=== PATIENT | female | born 1945 | race Caucasian/White ===

== ENCOUNTER → 2017-03-20 | Outpatient (CLI) | payer MEDICARE, BC ==
--- NOTE | 2017-03-20 14:17 | WOMENS IMAGING REPORT ---
EXAM DESCRIPTION: BONE DENSITY HIP/SPINE COMPLETED DATE/TIME: 03/20/2017 1:57 pm REASON FOR STUDY: OSTEOPENIA; M85.80 Z12.31 ENCNTR SCREEN MAMMOGRAM FOR MALIGNANT NEOPLASM OF DIO Z 13.820 ENCOUNTER FOR SCREENING FOR OSTEOPOROSIS M85.80 OTH DISRD OF BONE DENSITY AND STRUCTURE, UNS PECIFIED COMPARISON: None. TECHNIQUE: Dual-Energy X-ray Absorptiometry (DEXA) of the AP Spine and Hip. LIMITATIONS: None. FINDINGS: LUMBAR SPINE: The bone mineral density (BMD) measured from L1-L4 in the AP projection correlates with a T-score of -0.1, which is normal as defined by the World Health Organization. HIP: The bone mineral density (BMD) measured in the left hip correlates with a T-score of -1.2, which is o steopenia as defined by the World Health Organization. IMPRESSION: 1. LUMBAR SPINE: Normal 2. HIP: Osteopenia COMMENT: The World Health Organization defines low BMD as follows: T-score: Normal: Greater than -1.0 Osteopenia: Between -1.0 and -2.5 Osteoporosis: Less than -2.5 without fractures Established osteoporosis: Less than -2.5 with fractures In general, you may wish to consider: Diagnosis Treatment Follow-up DEXA Normal BMD Prevention 2-3 years Osteopenia Prevention/Therapy 1-2 years Osteoporosis Therapy Yearly TECHNICAL DOCUMENTATION: JOB ID: [id number] [employer]- All Rights Reserved
--- NOTE | 2017-03-21 15:57 | WOMENS IMAGING REPORT ---
EXAM DESCRIPTION: BILAT SCREENING MAMMO W/CAD COMPLETED DATE/TIME: 03/20/2017 1:56 pm REASON FOR STUDY: SCREENING MAMMO,OSTEOPOROSIS Z12.31 ENCNTR SCREEN MAMMOGRAM FOR MALIGNANT NEOPLAS M OF DIO Z13.820 ENCOUNTER FOR SCREENING FOR OSTEOPOROSIS M85.80 OTH DISRD OF BONE DENSITY AND STRU CTURE, UNSPECIFIED COMPARISON: [id number] TECHNIQUE: Standard craniocaudal and mediolateral oblique views of each breast recorded using digita l acquisition. LIMITATIONS: None. FINDINGS: No masses, calcifications or architectural distortion. No areas of suspicion. Read with the assistance of CAD. .[facility] - R2 Cenova Version 1.3 .[facility] - R2 Cenova Version 1.3 .[facility] - R2 Cenova Version 2.[address] - R2 Cenova Version 2.4 .[facility] - R2 Sand Filler Version 9.2 IMPRESSION: NORMAL MAMMOGRAM. BIRADS 1. BREAST DENSITY: b. There are scattered areas of fibroglandular density. BIRAD: 1 NEGATIVE RECOMMENDATION: ROUTINE SCREENING COMMENT: The patient has been notified of the results by letter per SA requirements. Additional no tification policies are in place for contacting patient with suspicious or incomplete findings. Quality ID #225: The [employer] [place] [employer] recommends an annual screening mammogram for women aged 40 years or over. This facility utilizes a reminder system to ensure that all patients receive reminder letters, and/or direct phone calls for appointments. This includes reminders for routine scr eening mammograms, diagnostic mammograms, or other Breast Imaging Interventions when appropriate. Th is patient will be placed in the appropriate reminder system. The [employer] [place] [employer] (ACR) has developed recommendations for screening MRI of the breast s in certain patient populations, to be used in conjunction with mammography. Breast MRI surveillanc e may be appropriate for women with more than 20% lifetime risk of developing breast cancer as deter mined by genetic testing, significant family history of the disease, or history of mantle radiation f or Hodgkins Disease. ACR Practice Guidelines 2008. TECHNICAL DOCUMENTATION: FINDING NUMBER: (1) ASSESSMENT: (1) JOB ID: [id number] [employer]- All Rights Reserved
== END ==
LOC: WI 10:01
PROVIDERS: ATTEND Internal Medicine
DX: Z12.31 Encounter for screening mammogram for malignant neoplasm of breast (principal); M85.88 Other specified disorders of bone density and structure, other site
CPT/HCPCS: 77067; 77080

== ENCOUNTER 2018-03-02 19:33 | Emergency (ER) | payer MEDICARE, BC ==
--- NOTE | 2018-03-02 20:02 | ER Document Report ---
ED General - General Chief Complaint: Ankle Injury Stated Complaint: FALL, LEFT ANKLE INJURY Time Seen by Provider: 03/02/18 19:39 Notes: Patient is a 72-year-old female who presents with left ankle and foot pain. Patient states that this occurred as she was walking out to her backyard, her foot got stuck on the door prompting her to fall forward and twisted her left ankle. She states that she heard a crack and developed an immediate, severe, throbbing pain to her left ankle that has been ongoing since that time. She states any attempt at bearing weight worsens the pain. She has declined anything to improve the pain. She does however note that she has minimal pain so long as she does not move the ankle. She denies any additional injuries today stating that she caught the rest of her body on a table with her hands and thankfully did not hurt any other area of her body. She denies any history of similar injury in the past. She has not seen her primary care doctor regarding today's concerns. TRAVEL OUTSIDE OF THE [place] IN LAST 30 DAYS: No Past Medical History - General Information source: Patient - Social History Smoking Status: Never Smoker Frequency of alcohol use: None Drug Abuse: None Lives with: Spouse/Significant other Family History: Reviewed & Not Pertinent Patient has suicidal ideation: No Patient has homicidal ideation: No - Past Medical History Cardiac Medical History: Reports: Hx Hypertension Endocrine Medical History: Reports: Hx Diabetes Mellitus Type 2 Renal/ Medical History: Denies: Hx Peritoneal Dialysis Review of Systems - Review of Systems Notes: Constitutional: Negative for fever. Eyes: Negative for visual changes. ENT: Negative for facial injury Cardiovascular: Negative for chest injury. Respiratory: Negative for shortness of breath. Gastrointestinal: Negative for abdominal injury. Genitourinary: Negative for genital injury Musculoskeletal: Positive for left ankle and left foot injury Skin: Negative for laceration/abrasions. Neurological: Negative for head injury. Physical Exam - Vital signs Vitals: Temp Pulse Resp BP Pulse Ox 98.5 F 71 19 142/46 H 99 03/02/18 19:36 03/02/18 19:36 03/02/18 19:36 03/02/18 19:36 03/02/18 19:36 Interpretation: Normal Notes: PHYSICAL EXAMINATION: GENERAL: Well-appearing, well-nourished and in no acute distress. HEAD: Atraumatic, normocephalic. EYES: sclera anicteric, conjunctiva are normal. ENT: Moist mucous membranes. NECK: Normal range of motion LUNGS: Normal work of breathing HEART: 2+ DP pulses bilaterally EXTREMITIES: Swelling of the lateral malleolus of the left ankle. Significant pain on palpation of the base of the fifth left toe. NEUROLOGICAL: No focal neurological deficits. Moves all extremities spontaneously and on command. PSYCH: Normal mood, normal affect. SKIN: Warm, Dry, normal turgor, ecchymosis noted over the lateral malleolus of the left lower extremity as well as over the lateral aspect of the mid dorsal left foot Course - Re-evaluation Re-evalutation: 03/02/18 20:01 Patient presents with left lateral malleolus bruising pain to palpation after mechanical trip and fall in which she rolled her ankle. She did not sustain any additional injuries. The patient does have some pain at the base of the fifth toe and a foot x-ray will also be obtained. Will also obtain ankle/tib-fib x- ray. Patient has declined pain medication. She denies any additional injury or concerns. 03/02/18 21:24 X-rays do show a fracture of the left distal fibula as well as a fracture of the base of the fifth metatarsal. The patient has been made nonweightbearing, placed in a short leg posterior splint, and provided crutches. She has been instructed to follow-up with orthopedic surgery within the next 1 week. At this time will discharge with return precautions and follow-up recommendations. Verbal discharge instructions given a the bedside and opportunity for questions given. Medication warnings reviewed. Patient is in agreement with this plan and has verbalized understanding of return precautions and the need for orthopedic follow-up in the next 3-7 days - Vital Signs Vital signs: Temp Pulse Resp BP Pulse Ox 98.0 F 75 15 122/71 98 03/02/18 23:20 03/02/18 23:20 03/02/18 23:20 03/02/18 23:20 03/02/18 23:20 - Diagnostic Test Radiology reviewed: Image reviewed, Reports reviewed Radiology results interpreted by me: 03/02/18 21:25 Left tib-fib: Distal fibular fracture Left foot x-ray: Fracture of the base of the fifth metatarsal Procedures - Immobilization Left Ankle Pre-Proc Neuro Vasc Exam: Normal Immobilizer type: Short Leg Posterior Performed by: Provider assisted Post-Proc Neuro Vasc Exam: Normal Alignment checked and good: Yes Discharge - Discharge Clinical Impression: Fracture of fifth metatarsal bone Qualifiers: Encounter type: initial encounter Fracture type: closed Fracture alignment: displaced Laterality: left Qualified Code(s): S92.352A - Displaced fracture of fifth metatarsal bone, left foot, initial encounter for closed fracture Fracture of distal fibula Qualifiers: Encounter type: initial encounter Fracture type: closed Fracture morphology: unspecified fracture morphology Laterality: left Qualified Code(s): S82.832A - Other fracture of upper and lower end of left fibula, initial encounter for closed fracture Fall Qualifiers: Encounter type: initial encounter Qualified Code(s): W19.XXXA - Unspecified fall, initial encounter Condition: Good Disposition: HOME, SELF-CARE Additional Instructions: Your x-ray does show a fracture of your distal fibula as well as the base of the fifth toe. You have been placed in a splint and need to keep this on until you are seen by orthopedic surgery. Please do not bear weight on this foot and use the crutches provided. For your pain: Take ibuprofen 600 mg and acetaminophen 1000 mg every 6 hours together as needed for pain. Please follow-up with orthopedic surgery within the next 1 week. Return to the emergency department immediately if you have worsening of your pain, spreading redness from your foot, pass out, noticed discoloration of your foot, have weakness or numbness of the foot, or have any other symptoms that are worrisome to you. Referrals: DUSTY HASKINS MD [Primary Care Provider] - Follow up as needed BIA GALVAN MD [ACTIVE STAFF] - Follow up in 1 week
--- NOTE | 2018-03-02 20:59 | RADIOLOGY REPORT (SQ) ---
EXAM DESCRIPTION: TIBIA FIBULA LEFT COMPLETED DATE/TIME: 03/02/2018 8:30 pm REASON FOR STUDY: fall, ankle pain COMPARISON: None. NUMBER OF VIEWS: Two views. TECHNIQUE: Two radiographic images acquired of the left tibia and fibula to include the knee and ank le in at least one projection. LIMITATIONS: None. FINDINGS: MINERALIZATION: Normal. BONES: No fracture or dislocation of the proximal tibia or fibula. There is a minimally displaced fr acture of the distal left fibular tip and a probable Oliver type fracture of the base of the left 5th metatarsal. SOFT TISSUES: No obvious swelling or foreign body. OTHER: No other significant finding. IMPRESSION: 1. No fracture or dislocation of the proximal tibia or fibula. 2. There is a minimally displaced fracture of the distal left fibular tip and a probable Oliver type f racture of the base of the left 5th metatarsal. Recommend dedicated radiographs of the foot and ankl e to further evaluate. TECHNICAL DOCUMENTATION: JOB ID: [id number] [employer]- All Rights Reserved Reading location - IP/workstation name: [email or web address]
--- NOTE | 2018-03-02 21:13 | RADIOLOGY REPORT (SQ) ---
3 VIEWS OF THE LEFT FOOT HISTORY: 5th toe base pain. COMPARISON: None. FINDINGS: Generalized osteopenia is present. There is an acute mildly displaced fracture of the fifth metatarsal base. No evidence of dislocation. There is mild overlying soft tissue swelling. IMPRESSION: Acute mildly displaced fracture of the fifth metatarsal base.
[2018-03-02 23:20] VITALS: BP 122/71
== END 2018-03-02 23:20 | disposition home or self-care (01) ==
LOC: ER 19:33
DX: S92.352A Displaced fracture of fifth metatarsal bone, left foot, initial encounter for closed fracture (principal); S82.832A Other fracture of upper and lower end of left fibula, initial encounter for closed fracture; W18.30XA Fall on same level, unspecified, initial encounter; Y92.008 Other place in unspecified non-institutional (private) residence as the place of occurrence of the external cause; E11.9 Type 2 diabetes mellitus without complications; I10 Essential (primary) hypertension
CPT/HCPCS: 99284

== ENCOUNTER 2018-09-22 13:04 | Emergency (ER) | payer MEDICARE, BC ==
--- NOTE | 2018-09-22 13:58 | ER Document Report ---
ED Medical Screen (RME) - General Chief Complaint: Vomiting Stated Complaint: VOMITING BLOOD Time Seen by Provider: 09/22/18 13:54 Primary Care Provider: DUSTY HASKINS MD [Primary Care Provider] - Follow up as needed Mode of Arrival: Wheelchair Information source: Patient Notes: Patient presents emergency department with reports that she vomited 3 times this morning bright red blood a lot. Patient reports she had a bowel movement but denies that having any blood in it. Patient has a history of cirrhosis and has just been diagnosed with liver cancer. She reports she is not on any chemo or radiation yet. Patient feels dizzy. Denies chest pain shortness of breath. Denies abdominal pain. I have greeted and performed a rapid initial assessment of this patient. A comprehensive ED assessment and evaluation of the patient, analysis of test results and completion of the medical decision making process will be conducted by additional ED providers. Dictation of this chart was performed using voice recognition software; therefore, there may be some unintended grammatical errors. TRAVEL OUTSIDE OF THE [place] IN LAST 30 DAYS: No - Related Data Allergies/Adverse Reactions: No Known Allergies Allergy (Verified 09/22/18 13:22) Past Medical History - Past Medical History Cardiac Medical History: Reports: Hx Hypertension Endocrine Medical History: Reports: Hx Diabetes Mellitus Type 2 Renal/ Medical History: Denies: Hx Peritoneal Dialysis Physical Exam - Vital signs Vitals: Temp Pulse Resp BP Pulse Ox 97.9 F 68 20 152/65 H 96 09/22/18 13:32 09/22/18 13:32 09/22/18 13:32 09/22/18 13:32 09/22/18 13:32 Course - Vital Signs Vital signs: Temp Pulse Resp BP Pulse Ox 97.9 F 68 20 152/65 H 96 09/22/18 13:32 09/22/18 13:32 09/22/18 13:32 09/22/18 13:32 09/22/18 13:32 Doctor's Discharge - Discharge Referrals: DUSTY HASKINS MD [Primary Care Provider] - Follow up as needed
[2018-09-22 14:44] LABS: ABSOLUTE LYMPHOCYTES (AUTO) 0.8 10^3/uL (0.5-4.7); ABSOLUTE MONOCYTES (AUTO) 0.4 10^3/uL (0.1-1.4); ABSOLUTE NEUT (AUTO) 3.6 10^3/uL (1.7-8.2); BASOPHILS % (AUTO) 0.5 % (0-2); EOSINOPHILS % (AUTO) 0.3 % (0-6); HEMATOCRIT 38.7 % (36.0-47.0); HEMOGLOBIN 12.7 g/dL (12.0-15.5); LYMPHOCYTES % (AUTO) 17.4 % (13-45); MEAN CORPUSCULAR HEMOGLOBIN 27.6 pg (27.0-33.4); MEAN CORPUSCULAR HGB CONC 32.7 g/dL (32.0-36.0); MEAN CORPUSCULAR VOLUME 84 fl (80-97); MONOCYTES % (AUTO) 7.9 % (3-13); RED BLOOD COUNT 4.59 10^6/uL (3.72-5.28); SEGMENTED NEUTROPHILS % (AUTO) 73.9 % (42-78); TOTAL CELLS COUNTED % (AUTO) 100 %; WHITE BLOOD COUNT 4.9 10^3/uL (4.0-10.5)
[2018-09-22 15:09] LABS: ALANINE AMINOTRANSFERASE 58 U/L (9-52); ALKALINE PHOSPHATASE 62 U/L (38-126); ANION GAP 7 (5-19); ASPARTATE AMINO TRANSFERASE 68 U/L (14-36); BILIRUBIN,DIRECT 0.2 mg/dL (0.0-0.4); BILIRUBIN,TOTAL 1.4 mg/dL (0.2-1.3); BLOOD UREA NITROGEN 15 mg/dL (7-20); CALCIUM 9.9 mg/dL (8.4-10.2); CARBON DIOXIDE 27 mmol/L (22-30); CHLORIDE 106 mmol/L (98-107); GLUCOSE 146 mg/dL (75-110); POTASSIUM 4.4 mmol/L (3.6-5.0); TOTAL PROTEIN 6.9 g/dL (6.3-8.2)
[2018-09-22 15:14] LABS: PLATELET COUNT 72 10^3/uL (150-450)
[2018-09-22] MEDS ORDERED: PANTOPRAZOLE SODIUM 40 MG VIAL IV ONE (15:26)
[2018-09-22] MEDS ORDERED: OCTREOTIDE ACETATE INJ/PF 100 MCG/1 ML SDV IV ONE (15:26)
[2018-09-22] MEDS ORDERED: CEFTRIAXONE INJ 1000 MG VIAL IV ONE (15:26)
[2018-09-22] MEDS ORDERED: NORMAL SALINE 1000 ML 1,000 ML IV ONE (15:35)
--- NOTE | 2018-09-22 15:35 | ER Document Report ---
ED General - General Chief Complaint: Vomiting Stated Complaint: VOMITING BLOOD Time Seen by Provider: 09/22/18 13:54 Primary Care Provider: DUSTY HASKINS MD [ACTIVE STAFF] - Follow up as needed Mode of Arrival: Wheelchair TRAVEL OUTSIDE OF THE [place] IN LAST 30 DAYS: No - HPI Notes: Patient is a 83-year-old female that presents to the emergency department for chief complaint of hematemesis. Patient presents the emergency room with chief complaint of vomiting bright red blood. She states she had 3 episodes this morning where she felt like she had to burp but then a large amount of blood came up. She states she could not quantify it but it was aye bleeding. She currently denies any abdominal pain. She denies known history of esophageal varices but states she has not had an EGD in many years. Patient was diagnosed with liver cancer about a year ago and has not undergone any treatments as of yet. She has been evaluated at [facility] and told she is not a candidate for liver transplant. Patient denies having any black or bloody stools but has not had a bowel movement since the onset of her hematemesis. Currently she states she is feeling well. She denies history of requiring blood transfusion. She is seeing a Dr. Hicks associated with [facility] for GI. She denies being on any blood thinning medications. Past Medical History: Liver cancer, cirrhosis Past Surgical History: Reviewed in chart Social History: Denies tobacco alcohol use, lives independently Family History: Reviewed and noncontributory for presenting illness Allergies: Reviewed, see documented allergy list. REVIEW OF SYSTEMS: CONSTITUTIONAL : No fever No chills No diaphoresis No recent illness EENT: No vision changes No congestion No sore throat CARDIOVASCULAR: No chest pain No palpitations RESPIRATORY: No shortness of breath No cough No difficulty breathing GASTROINTESTINAL: No abdominal pain nausea vomiting No diarrhea Hematemesis GENITOURINARY: No dysuria No hematuria No difficulty urinating MUSCULOSKELETAL: No back pain No leg pain No arm pain SKIN: No rashes No lesions LYMPHATIC: No swollen, enlarged glands. NEUROLOGICAL: No lightheadedness No headache No weakness No paresthesias PSYCHIATRIC: No anxiety No depression PHYSICAL EXAMINATION: Vital signs reviewed, nursing noted reviewed. GENERAL: Well-appearing, well-nourished and in no acute distress. HEAD: Atraumatic, normocephalic. EYES: Eyes appear normal, extraocular movements intact, sclera anicteric, conjunctiva are normal without palor. ENT: nares patent, oropharynx clear without exudates. Dry mucous membranes. NECK: Normal range of motion, supple without lymphadenopathy LUNGS: Breath sounds clear to auscultation bilaterally and equal. No wheezes rales or rhonchi. HEART: Regular rate and rhythm without murmurs ABDOMEN: Soft, nontender. No rebound, guarding, or rigidity. No masses appreciated. EXTREMITIES: Nontender, good range of motion, no pitting or edema. NEUROLOGICAL: No focal neurological deficits. Moves all extremities spontaneously Motor and sensory grossly intact on exam. PSYCH: Normal mood, normal affect. SKIN: Warm, Dry, normal turgor, no rashes or lesions noted on exposed skin - Related Data Allergies/Adverse Reactions: No Known Allergies Allergy (Verified 09/22/18 13:22) Past Medical History - General Information source: Patient - Social History Smoking Status: Never Smoker Frequency of alcohol use: None Drug Abuse: None Family History: Reviewed & Not Pertinent Patient has suicidal ideation: No Patient has homicidal ideation: No - Past Medical History Cardiac Medical History: Reports: Hx Hypertension Endocrine Medical History: Reports: Hx Diabetes Mellitus Type 2 Renal/ Medical History: Denies: Hx Peritoneal Dialysis Past Surgical History: Reports: Hx Hysterectomy, Hx Orthopedic Surgery - carpel tunnel Physical Exam - Vital signs Vitals: Temp Pulse Resp BP Pulse Ox 97.9 F 68 20 152/65 H 96 09/22/18 13:32 09/22/18 13:32 09/22/18 13:32 09/22/18 13:32 09/22/18 13:32 Course - Re-evaluation Re-evalutation: 09/22/18 15:35 Vitals reviewed. Nursing notes reviewed. Patient is well-appearing and in no acute distress. Currently she denies any abdominal pain or nausea. The amount of hematemesis she is describing seems moderate to severe. She has a normal hemoglobin on initial blood draw. She is not currently tachycardic or hypotensive. She does have dry mucous membranes and was given IV hydration. Patient's EKG shows QT prolongation. She has no severe electrolyte derangements. We currently do not have GI manager web application. With patient's history of liver cancer and cirrhosis there is a high probability that she has esophageal varices that are causing the bleeding. Patient is requiring GI evaluation and inpatient monitoring. Her GI physician is associated with [facility] and she will be transferred there for further care. She was given IV fluids, Rocephin, octreotide, and Protonix in the emergency room. Laboratory 09/22/18 09/22/18 14:22 14:22 WBC 4.9 RBC 4.59 Hgb 12.7 Hct 38.7 MCV 84 MCH 27.6 MCHC 32.7 RDW 15.0 H Plt Count 72 L Seg Neutrophils % 73.9 Lymphocytes % 17.4 Monocytes % 7.9 Eosinophils % 0.3 Basophils % 0.5 Absolute Neutrophils 3.6 Absolute Lymphocytes 0.8 Absolute Monocytes 0.4 Absolute Eosinophils 0.0 Absolute Basophils 0.0 Sodium 140.0 Potassium 4.4 Chloride 106 Carbon Dioxide 27 Anion Gap 7 BUN 15 Creatinine 0.59 Est GFR ( Amer) > 60 Est GFR (Non-Af Amer) > 60 Glucose 146 H Calcium 9.9 Total Bilirubin 1.4 H Direct Bilirubin 0.2 Neonat Total Bilirubin Not Reportable Neonat Direct Bilirubin Not Reportable Neonat Indirect Bili Not Reportable AST 68 H ALT 58 H Alkaline Phosphatase 62 Total Protein 6.9 Albumin 4.0 Patient's care was discussed with Dr. Monroe who has accepted patient for transfer. - Vital Signs Vital signs: Temp Pulse Resp BP Pulse Ox 97.9 F 68 20 152/65 H 96 09/22/18 13:32 09/22/18 13:32 09/22/18 13:32 09/22/18 13:32 09/22/18 13:32 - Laboratory Result Diagrams: 09/22/18 14:22 09/22/18 14:22 Laboratory results interpreted by me: 09/22/18 09/22/18 14:22 14:22 RDW 15.0 H Plt Count 72 L Glucose 146 H Total Bilirubin 1.4 H AST 68 H ALT 58 H - EKG Interpretation by Me Additional EKG results interpreted by me: 09/22/18 15:40 Interpreted by myself 1433: Normal sinus rhythm, rate 75, right bundle branch block, prolonged QT, QTC 637, no STEMI Discharge - Discharge Clinical Impression: Hematemesis of unknown cause, QT prolongation Condition: Stable Disposition: [facility] Referrals: DUSTY HASKINS MD [ACTIVE STAFF] - Follow up as needed
[2018-09-22] MEDS ORDERED: PANTOPRAZOLE SODIUM 40 MG VIAL IV PRN (16:38)
[2018-09-22 17:12] LABS: ABSOLUTE LYMPHOCYTES (AUTO) 1.1 10^3/uL (0.5-4.7); ABSOLUTE MONOCYTES (AUTO) 0.4 10^3/uL (0.1-1.4); ABSOLUTE NEUT (AUTO) 2.8 10^3/uL (1.7-8.2); BASOPHILS % (AUTO) 0.8 % (0-2); EOSINOPHILS % (AUTO) 0.4 % (0-6); HEMATOCRIT 37.2 % (36.0-47.0); LYMPHOCYTES % (AUTO) 24.9 % (13-45); MEAN CORPUSCULAR HEMOGLOBIN 27.4 pg (27.0-33.4); MEAN CORPUSCULAR HGB CONC 32.2 g/dL (32.0-36.0); MEAN CORPUSCULAR VOLUME 85 fl (80-97); MONOCYTES % (AUTO) 8.9 % (3-13); RED BLOOD COUNT 4.36 10^6/uL (3.72-5.28); TOTAL CELLS COUNTED % (AUTO) 100 %; WHITE BLOOD COUNT 4.3 10^3/uL (4.0-10.5)
[2018-09-22 17:18] LABS: INTERNATIONAL RATION (INR) 1.19; PROTHROMBIN TIME 15.1 SEC (11.4-15.4)
[2018-09-22 17:19] LABS: PARTIAL THROMBOPLASTIN TIME 27.8 SEC (23.5-35.8)
[2018-09-22 17:36] LABS: PLATELET COUNT 60 10^3/uL (150-450)
[2018-09-22 18:18] VITALS: BP 180/54
--- NOTE | 2018-09-24 08:12 | EKG REPORT ---
SEVERITY:- ABNORMAL ECG - SINUS TACHYCARDIA RIGHT BUNDLE BRANCH BLOCK BORDERLINE INFERIOR Q WAVES : Confirmed by: Francisco Guerrero MD 24-Sep-2018 08:11:25
== END 2018-09-22 18:28 | disposition short-term general hospital (02) ==
LOC: ER 13:04
DX: K92.0 Hematemesis (principal); I45.81 Long QT syndrome; C22.8 Malignant neoplasm of liver, primary, unspecified as to type; I10 Essential (primary) hypertension; E11.9 Type 2 diabetes mellitus without complications; Z90.710 Acquired absence of both cervix and uterus
CPT/HCPCS: 93005; 99285; 96361; 96375; 96365; 86900; 86901; 36415; 86850; 85025; 85610; 85730; 80053; 93010; J2354; C9113; J0696; J7030; S0164

== ENCOUNTER → 2018-10-02 | Outpatient (CLI) | payer MEDICARE, BC ==
--- NOTE | 2018-10-02 12:02 | WOMENS IMAGING REPORT ---
EXAM DESCRIPTION: BILAT SCREENING MAMMO W/CAD COMPLETED DATE/TIME: 10/02/2018 11:43 am REASON FOR STUDY: Z12.31 Z12.31 ENCOUNTER FOR SCREENING MAMMOGRAM FOR MALIGNANT NEOPLASM OF B Z12.31 ENCNTR SCREEN MAMMOGRAM FOR MALIGNANT NEOPLASM OF DIO COMPARISON: 03/20/2017 and 03/08/2016. EXAM PARAMETERS: Standard craniocaudal and mediolateral oblique views of each breast recorded using digital acquisition. Read with the assistance of CAD. .[facility] - R2 Program Medical Director Version 9.2 LIMITATIONS: None. FINDINGS: Findings present which are benign by mammographic criteria. No suspicious masses, calcifi cations or architectural distortion. Pertinent benign findings: Stable benign calcifications and asymmetry in the left breast. Benign mammographic findings may include one or more of the following: Smooth masses, popcorn/rim/co arse calcifications, asymmetries, post-procedure changes, and lesions with long-standing stability. IMPRESSION: BENIGN MAMMOGRAPHIC FINDINGS. BIRADS 2 BREAST DENSITY: b. There are scattered areas of fibroglandular density. BIRAD: ASSESSMENT: 2 BENIGN FINDING(S) RECOMMENDATION: ROUTINE SCREENING COMMENT: The patient has been notified of the results by letter per MQSA requirements. Additional no tification policies are in place for contacting patient with suspicious or incomplete findings. Quality ID #[id number]: The [place] [employer] recommends an annual screening mammogram for women aged 40 years or over. This facility utilizes a reminder system to ensure that all patients receive reminder letters, and/or direct phone calls for appointments. This includes reminders for routine scr eening mammograms, diagnostic mammograms, or other Breast Imaging Interventions when appropriate. Th is patient will be placed in the appropriate reminder system. TECHNICAL DOCUMENTATION: FINDING NUMBER: (1) ASSESSMENT: (1) JOB ID: [id number] [employer]- All Rights Reserved Reading location - IP/workstation name: [email or web address]
== END ==
LOC: RAD 10:13
PROVIDERS: ATTEND Family Medicine
DX: Z12.31 Encounter for screening mammogram for malignant neoplasm of breast (principal)
CPT/HCPCS: 77067